=== PATIENT | female | born 1985 | race Caucasian/White ===

== ENCOUNTER → 2018-02-06 | Outpatient (CLI) | payer OTHER ==
[~2018-02-06] MED LIST: CYCL5TAB PO; HYDR-3533 PO; LEVO-245 PO; PRED20 PO; RANI150T PO; VENTAER INH; [UNRECOGNIZED DRUG - CODE] PO
== END ==
LOC: CPRE 11:56
PROVIDERS: ATTEND Obstetrics & Gynecology
DX: N80.3 Endometriosis of pelvic peritoneum (principal); R10.2 Pelvic and perineal pain; N92.1 Excessive and frequent menstruation with irregular cycle

== ENCOUNTER → 2018-02-14 | Day surgery (SDC) | payer OTHER ==
[~2018-02-14] VITALS: Ht 175.3 cm; Wt 105.7 kg
[~2018-02-14] MED LIST changes: +ACETAMINOPHEN 1000 MG/100 ML 100 ML IV ONE; +APREPITANT 40 MG CAP PO SCH; +BUPIVACAINE HCL PF 0.25% 30 ML VIAL ONE; +CHLORHEXIDINE GLUCONATE 2 % 1 PACK (2 CLOTHS) TOPICAL PRN; -CYCL5TAB PO; +DEXAMETHASONE SOD PHOS 4 MG/ML VIAL IV ONE; +DO NOT ADM ANY ANTICOAGULANT DRUGS PRN; -HYDR-3533 PO; +HYDROmorphone HCL PF 0.5 MG/0.5 ML SYRINGE IV PUSH PRN; +HYDROmorphone HCL PF 2 MG/ML VIAL ONE; +IBUPROFEN 600 MG TAB PO PRN; +INSULIN HUMAN REGULAR 1,000 UNITS/10 ML VIAL SQ PRN; +KETOROLAC TROMETHAMINE 30 MG/ML (IVP) VIAL IVP PRN; +LACTATED RINGER'S 1000 ML INJ 1,000 ML IV SCH; +LACTATED RINGER'S 1000 ML IV PRN; +LIDOCAINE HCL 1% PF 5 ML SYRINGE OTHER ONE; +LORazepam 0.5 MG TAB PO PRN; +METOPROLOL TARTRATE 25 MG TAB PO PRN; +MORPHINE SULFATE 4 MG/ML INJ ONE; +NORMOSOL R INJ 2,000 ML IV ONE; +ONDANSETRON HCL 4 MG/2 ML VIAL IV ONE; +ONDANSETRON HCL 4 MG/2 ML VIAL IVP PRN; -PRED20 PO; +PROPOFOL 200 MG/20 ML AMP IV ONE; +ROCURONIUM INJ 50 MG/5 ML SYRINGE IV PUSH ONE; +SCOPOLAMINE 1.5 MG PATCH ONE; +SODIUM CHLORID 0.9% 500 ML IV PRN; +SODIUM CHLORIDE 0.9% FLUSH 10 ML FLUSH IV FLUSH PRN; +SODIUM CHLORIDE 0.9% FLUSH 10 ML FLUSH IV FLUSH SCH; +SUGAMMADEX SODIUM 200 MG/2 ML VIAL IV PUSH ONE; -[UNRECOGNIZED DRUG - CODE] PO; +ceFAZolin 2 GM PREMIX 50 ML ONE; +ceFAZolin 2 GM/NS PREMIX 100 ML IV SCH; +ePHEDrine/NS 25 MG/5 ML SYRINGE IV ONE; +fentaNYL CITRATE 250 MCG/5 ML AMP ONE; +oxyCODONE/ACETAMINOPHEN 5 MG/325 MG TAB PO PRN
--- NOTE | 2018-02-14 10:48 | MP ---
cc: Al Farmer MD, Marjorie MD DATE OF OPERATION: 02/14/2018 DATE OF PROCEDURE: 02/14/2018 PREOPERATIVE DIAGNOSES: Patient with chronic pelvic pain, pelvic endometriosis, dysmenorrhea, dyspareunia, previous surgical diagnosis of severe endometriosis. PROCEDURE PERFORMED: Exam under anesthesia, operative laparoscopy with robotic-assisted total hysterectomy, left oophorectomy, cystourethroscopy. POSTOPERATIVE DIAGNOSES: Patient with chronic pelvic pain, pelvic endometriosis, dysmenorrhea, dyspareunia, previous surgical diagnosis of severe endometriosis. Patient had approximately stage II-III pelvic endometriosis. Right ovary was normal size and shape with no surface lesions, no adhesions, no deformity. SURGEON: Al Farmer MD ANESTHESIA: General with endotracheal intubation. ESTIMATED BLOOD LOSS: 25 mL. DRAINS: Guillen to gravity. OPERATIVE FINDINGS: The patient had a uterus that was approximately 8 weeks in size. The uterus was mobile. There were some adhesions involving the serosal surface of the sigmoid colon to the left ovary and left sidewall, which were filmy in nature. She had scarring of the peritoneal surfaces over both the right and left ureters consistent with previous surgical procedure. There was no other significant peritoneal findings. Upper quadrants appeared normal. The right ovary was devoid of any visible lesion or deformity or concerns for endometriosis or adhesions. The fallopian tubes were surgically removed. INDICATIONS FOR PROCEDURE: The patient with chronic debilitating pelvic pain, known history of endometriosis, has failed conservative management. The patient, after reviewing her options, elected for hysterectomy. A long discussion regarding removal of the ovaries was conducted and the decision was to remove the left ovary. The patient has had predominantly left-sided pain and then intraoperative evaluation of the right ovary will determine its removal. The decision will be based on concerns for the presence of endometriosis involving the ovary and future risk of recurrence. She received Ancef 2 grams prophylactically. DESCRIPTION OF PROCEDURE: The patient was taken to the operative suite in stable condition and underwent general anesthesia with endotracheal intubation. The patient was carefully positioned in a dorsal lithotomy position using Bonifacio stirrups on the lower extremities. She had sequential was placed for VTE prophylaxis. She was prepped and draped and a timeout was conducted and agreed by all present in the room. Procedure initiated by placing a Guillen catheter triple lumen without difficulty. The urine return was clear. The cervix was easily visualized and secured with a single-tooth tenaculum, after a bivalve retractor was inserted, the uterine sound was placed gently in the midline to about 8 cm and then a medium VK device was inserted and secured to the cervix. Retractors were removed along with the tenaculum. There was no vaginal bleeding from the vaginal procedure. Gloves were then changed. The abdomen was examined. The patient had multiple laparoscopic scars but no significant deformity or asymmetry. Decision due to the patient's surgical history was to place an entry port in the left upper quadrant. This was initiated first by injecting the incision site with 0.25% plain Marcaine using a Veress needle, insufflating the abdomen and then placing a 5 mm trocar into the peritoneal cavity. Visualization of the abdominal wall through that port proved free of any omental or bowel adhesions. The umbilical PowerPort was then chosen using a 12 mm trocar injecting with 0.25% plain Marcaine and then placing the trocar directly into the peritoneal cavity under direct vision. Accessory ports were placed using 8 mm trocars on the right and the left and then the patient was previously placed in steep Trendelenburg positioning and evaluation of the pelvic anatomy and findings were noted above. The da Pura patient cart was then side docked with the #2 arm on the left, the #1 arm on the right, monopolar scissors were attached in the #2 with low energy source and a bipolar grasper on the #1 arm. A 0 degree lens camera was utilized. Good articulation of the arms was noted. The left upper quadrant port was left intact in place as an accessory port for the miller head assistant wet process. Attention was directed to the da Pura surgeon cart were good visualization was noted. Good articulation was noted. Review of the anatomic landmarks were made. Both ureters were easily visualized. Again, there was no significant distortion of the pelvic anatomy. Dissection of the round ligament on the left side initiated the procedure with dissection of the retroperitoneal space and taking down the broad ligament anteriorly. The ureter was identified easily in the retroperitoneal space and then the infundibulopelvic vessels were skeletonized on the left and then secured hemostatically. This allowed dissection of the uterine artery and vein on the left side, which were made hemostatic using the fenestrated bipolar and then attention was directed to the contralateral side where the same procedure was initiated dividing the round ligament hemostatically and then opening the broad ligament, allowing dissection and the bladder to fall away from the lower uterine segment. The decision was to leave the right ovary intact. The uterine ovarian pedicle was then skeletonized and ligated hemostatically and then the broad ligament was taken down posteriorly to identify and skeletonize the uterine artery and vein on the right. These were secured hemostatically and the pedicles . Once this was complete, the colpotomy incision was made posteriorly and then brought circumferentially to allow removal of the cervix intact with the uterus. The uterus, cervix and the left ovary were retrieved through the vaginal opening by the miller head assistant wet process. A #1 Stratafix suture was then introduced and then the vaginal cuff was closed in a linear fashion starting from the left cuff angle to the right. Good integrity of the closure was documented by placing a sponge stick by the miller head assistant wet process, applying pressure through the vagina, demonstrating no loss of integrity of the closure. Good hemostasis was noted. There was no hematoma. The suture needle was trimmed flush with the peritoneum and then secured and then attention was then directed back toward straight laparoscopy, undocking the patient cart. Once visualization of the pelvis was made with the laparoscope the suture needle was identified and retrieved, full counts being correct. Pelvis was irrigated with normal saline. There was no active bleeding. A piece of Interceed was introduced and used to protect the right ovary from adhesions secondary to the surgical procedure and then observation off pressure revealed no hematoma or active bleeding. Clear urine was draining through the Guillen throughout. Both ureters were easily visualized and delineated during the dissection and peristalsing normally. At the completion of the laparoscopic approach, the umbilical port site was closed with a cross bow #1 Vicryl suture with good result. The trocars were then removed under direct vision, deflating the pneumoperitoneum prior. The incision sites were closed with a subcuticular stitch of 4-0 Monocryl. Attention was directed to the bladder, where the Guillen catheter was backfilled with normal saline, approximately 200 mL. The Guillen was removed atraumatically and the straight laparoscope 5 mm camera was used to visualize the bladder. The urethra, the bladder and the ureters were normal throughout. Both ureters were peristalsing normally, jetting clear urine into the bladder and the bladder itself was intact with no interruption or suture placement. At the completion of the cystourethroscopy, the camera was removed and Guillen catheter was reinserted, draining clear urine. At the completion of the case, final counts correct. The patient was stable. She was taken to the recovery room on room air. MD KIERSTEN Souza/KD , 10:07 AM , 10:47 AM
[2018-02-14 12:45] VITALS: BP 138/82; PULSE 82; RESP 18; TEMP 97.6; O2SAT 97
== END | disposition home or self-care (01) ==
LOC: HSDC 05:56
PROVIDERS: ATTEND Obstetrics & Gynecology
DX: R10.2 Pelvic and perineal pain (principal); N94.10 Unspecified dyspareunia; N94.6 Dysmenorrhea, unspecified; Z01.818 Encounter for other preprocedural examination
CPT/HCPCS: 00840; 58573; 88307; C1765; J0131; J0690; J1100; J1170; J1885; J2270; J2405; J3010; J7120; J8501